=== PATIENT | male | born 1995 | race Caucasian/White ===

== ENCOUNTER 2017-07-17 18:02 | Emergency (ER) | payer OTHER ==
[~2017-07-17] VITALS: Ht 175.3 cm; Wt 77.3 kg
[2017-07-17 18:04] VITALS: TEMP 99.5
[2017-07-17 19:50] VITALS: BP 123/76; PULSE 62
== END 2017-07-17 19:47 | disposition home or self-care (01) ==
LOC: COL.ER 18:02
DX: S01.511A Laceration without foreign body of lip, initial encounter (principal); J45.909 Unspecified asthma, uncomplicated; W50.0XXA Accidental hit or strike by another person, initial encounter; Y92.322 Soccer field as the place of occurrence of the external cause